=== PATIENT | female | born 1955 | race Caucasian/White ===

== ENCOUNTER 2025-01-16 08:01 | Outpatient (CLI) | payer MEDICARE, SELFPAY ==
--- OUTSIDE RECORDS SUMMARY | 2024-06-05 06:30 | XMS_ITS ---
Author Organization [facility] [employer] Address [address] [place] [address] Care Team Providers Care Flotation Tender Helper Name Role Phone Angel Lerner MD Primary Care Provider Unavail able Angeles Ni Unavailable [phone] Allergies Allergen (clinical drug ingredient) Drug/Non Drug Allergy documented on EMR Reaction Allergy Type Onset Date Status CORTICOSTEROIDS (GLUCOCORTICOIDS) (uncoded) Unknown Allergy 06/09/2023 Active codeine Codeine Unknown Drug Allergy 06/09/2023 Active morphine Morphine Unknown Drug Allergy 06/09/2023 Active REASON FOR VISIT f/u, Depression screening negative Medications Medication SIG (Take, Route, Frequency, Duration) Notes Start Date End Date Status LORazepam 0.5 MG Tablet 1 tablet Oral twice a day; Duration: 30 days As needed 03/09/2024 Active Sertraline HCl 100 MG Tablet TAKE 1 TABLET BY MOUTH TWICE DAILY Oral; Duration: 90 days Active Ibuprofen 800 MG Tablet Oral; Duration: 30 Days Active Diclofenac Sodium 75 MG Tablet Delayed Release TAKE 1 TABLET BY MOUTH TWICE DAILY Oral; Duration: 30 Days Active Melatonin 1 MG Capsule 1 capsule at bedt carlos as needed Orally Once a day Active Dicyclomine HCl 20 MG Tablet TAKE 1 TABLET BY MOUTH TWICE DAILY NEEDED FOR 90 DAYS Oral; Duration: 90 Days Active Azelastine HCl 137 MCG/SPRAY Solution USE 1 SPRAY(S) IN EACH NOSTRIL TWICE DAILY DIRECTED Nasal; Duration: 50 Days Active Famotidine 20 MG Tablet TAKE 1 TABLET BY MOUTH EVERY DAY AT BEDTIME NIGHTLY FOR 90 DAYS Oral; Duration: 90 Days Active Social History Sex Assigned At : Social History Observation Description Sex Assigned At Female Vital Signs Blood pressure systolic 129 mm Hg 06/06/19 25 Blood pressure diastolic 77 mm Hg 025 Height 60.00 in 06/05/2024 Weight 190 lbs 06/05/2024 BMI 37.1 kg/m2 06/05/2024 Height-cm 152.40 cm 06/05/2024 Weight-kg 86.18 kg 06/05/2024 Encounters Encounter Location Date Provider Diagnosis [facility] [address] [place] [address] 06/05/2024 Angeles Ni Encounter for screening for cardiovascular disorders Z13.6 and Encounter for screening for depression Z13.31 Assessments Encounter Date Diagnosis (ICD Code) Assessment Notes Treatment Notes Treatment Clinical Notes Section Notes 06/05/2024 Encounter for screening for cardiovascular disorders (ICD-10 - Z13.6) 06/05/2024 Encounter for screening for depression (ICD-10 - Z13.31) Plan Of Treatment Next Appt Details Provider Name:Dom Baker , 02/08/2025 10:00:00 AM, [address], [facility] [address], [place], [address], History and Physical Notes * HPI (History of Present Illness) Category Sub-Category Detail Notes Category Not es Depression screening PHQ-9 Little inte rest or pleasure in doing things: Several days Feeling down, depressed, or hopeless: Se veral days Trouble falling or staying asleep, or sl eeping too much: Several days Feeling tired or having little energy: N ot at all Poor appetite or overeating: Not at all Feeling bad about yourself o r that you are a failure, or have let yourself or your family down: Not at all Trouble concentrating on thi ngs, such as reading the newspaper or watching television: Not at all Moving or speaking so slowly that other people could have noticed; or the opposite, being so fidgety or restless that you have been moving around a lot more than usual: Not at all Thoughts that you would be b toribio off or of hurting yourself in some way: Not at all Total Score: 3 Interpretation: Minimal Depression Intervention Depression Screening Findings: N egative Suicide Risk Assessment Performed: ____ Depression Screening NIKKI-7 (2018 Edition) Kathrine sparks nervous, anxious, or on edge: Not at all Not being able to stop or control worryi ng: Not at all Worrying too much about different things : Not at all Trouble relaxing: Not at all Being so restless that it is hard to sit still: Not at all Becoming easily annoyed or irritable: No t at all Feeling afraid as if something awful timo ht happen: Not at all Total NIKKI-7 Score: 0 Interpretation of Total: (0 to 4) No Anx iety Progress Notes * TYRONE BLESSING EDOB:[birth year] (69 yo F)Acc No.[id number]:06/05/2024 Patient: BLESSING WEATHERS Provider: Oracio Ni :1955 A ge:69 Y S ex:Female Date:06/05/2024 Address:[address] [place], [place] [id number] Pcp:Angel Lerner MD Subjective: * Chief Complaints: * F /uDepression screening negative * HPI: D epression screening: PHQ-9 L ittle interest or pleasure in doing things?Several days F eeling down, depressed, or hopeless S everal days T rouble falling or staying asleep, or sleeping too much S everal days F eeling tired or having little energy N ot at all P oor appetite or overeating N ot at all F eeling bad about yourself or that you are a failure, or have let yourself or your family down N ot at all T rouble concentrating on things, such as reading the newspaper or watching television N ot at all M oving or speaking so slowly that other people could have noticed; or the opposite, being so fidgety or restless that you have been moving around a lot more than usual N ot at all T houghts that you would be better off or of hurting yourself in some way N ot at all T otal Score 3 I nterpretation M inimal Depression Intervention D epression Screening Findings N egative S uicide Risk Assessment Performed _ D epression Screening: NIKKI-7 (2018 Edition) F eeling nervous, anxious, or on edge N ot at all N ot being able to stop or control worrying?Not at all W orrying too much about different things N ot at all T rouble relaxing N ot at all B eing so restless that it is hard to sit still N ot at all B ecoming easily annoyed or irritable N ot at all F eeling afraid as if something awful might happen N ot at all T otal NIKKI-7 Score 0 I nterpretation of Total ( 0 to 4) No Anxiety * ROS: P erformance Met: N ormal blood pressure reading documented, follow-up not required ( G8783). * Medical History: Problems: Abdominal pain Body mass index 30+ - obesity Carpal tunnel syndrome of left wrist Carpal tunnel syndrome of right wrist Chronic post-traumatic stress disorder Closed fracture of fibula Derangement of right knee Diarrhea Dizziness Fracture of tibial plateau Generalized anxiety disorder Impaired fasting glycemia Middle insomnia Mild recurrent major depression Moderate recurrent major depression Nausea Obesity Osteoarthritis of right knee joint Osteoarthrosis of the carpometacarpal joint of the thumb Pain in right foot Pain in wrist Pure hyperglyceridemia Sprain of talofibular ligament of left ankle , * Medications: T akingDicyclomine HCl 20 MG Tablet TAKE 1 TABLET BY MOUTH TWICE DAILY NEEDED FOR 90 DAYS Oral Famotidine 20 MG Tablet TAKE 1 TABLET BY MOUTH EVERY DAY AT BEDTIME NIGHTLY FOR 90 DAYS Oral Azelastine HCl 137 MCG/SPRAY Solution USE 1 SPRAY(S) IN EACH NOSTRIL TWICE DAILY DIRECTED Nasal Ibuprofen 800 MG Tablet Oral Melatonin 1 MG Capsule 1 capsule at bedtime as needed Orally Once a day Diclofenac Sodium 75 MG Tablet Delayed Release TAKE 1 TABLET BY MOUTH TWICE DAILY Oral Sertraline HCl 100 MG Tablet TAKE 1 TABLET BY MOUTH TWICE DAILY Oral LORazepam 0.5 MG Tablet 1 tablet Oral twice a day As neededMedication List reviewed and reconciled with the patientTaking Dicyclomine HCl 20 MG Tablet TAKE 1 TABLET BY MOUTH TWICE DAILY NEEDED FOR 90 DAYS Oral Taking Famotidine 20 MG Tablet TAKE 1 TABLET BY MOUTH EVERY DAY AT BEDTIME NIGHTLY FOR 90 DAYS Oral Taking Azelastine HCl 137 MCG/SPRAY Solution USE 1 SPRAY(S) IN EACH NOSTRIL TWICE DAILY DIRECTED Nasal Taking Ibuprofen 800 MG Tablet Oral Taking Melatonin 1 MG Capsule 1 capsule at bedtime as needed Orally Once a day Taking Diclofenac Sodium 75 MG Tablet Delayed Release TAKE 1 TABLET BY MOUTH TWICE DAILY Oral Taking Sertraline HCl 100 MG Tablet TAKE 1 TABLET BY MOUTH TWICE DAILY Oral Taking LORazepam 0.5 MG Tablet 1 tablet Oral twice a day As neededMedication List reviewed and reconciled with the patient * Allergies: C ORTICOSTEROIDS (GLUCOCORTICOIDS): Allergy - Onset Date 06/09/2023odeine: Allergy - Onset Date 06/09/2023Morphine: Allergy - Onset Date 06/09/2023yesAllergies Verified. Objective: * Vitals: B P:129/77mm Hg, Wt:190lbs, Wt-k.18 kg, Ht: 60.00 in, Ht-cm: 152.40 cm, BMI:37.1Index, Body Surface Area: 1.91. Assessment: * Assessment: 1. E ncounter for screening for cardiovascular disorders - Z13.6 2 . E ncounter for screening for depression - Z13.31 Plan: * Procedure Codes: G 8783 NORMAL BP READING DOC F/U NOT [id number] BEHAV ASSMT W/SCORE & DOCD/STAND [id number] MOST RECENT SYSTOLIC BP < 140MM [id number] MOST RECENT DIASTOLIC BP < 90MM HG Billing Information: * Procedure Codes: G8783 NORMAL BP READING DOC F/U NOT RQR. [id number] BEHAV ASSMT W/SCORE & DOCD/STAND INSTRUMENT. G8752 MOST RECENT SYSTOLIC BP < 140MM HG. G8754 MOST RECENT DIASTOLIC BP < 90MM HG. * Electronic signature of David Ni on 01/16/2025 at 08:11 AM CDT Sign off status: Pending * Provider: Oracio Ni Date: 0 06/05/2024 Generated for Marija madrid/Lima/Regina on: 1 08:11 AM CDT
--- NOTE | ~2025-01-16 | CT_ITS ---
EXAMINATION: CT lung screening DATE: 01/16/2025 08:27 INDICATION: Personal history of nicotine dependence TECHNIQUE: Computed tomography (CT) of the chest was performed without intravenous contrast. The dose-length product was 127.75 mGy-cm. Automated exposure control and iterative reconstruction technique were employed. COMPARISON: None FINDINGS: Heart size normal. No significant pleural or pericardial effusion. There are borderline mediastinal lymph nodes, likely reactive. There is atherosclerosis of the aorta and coronary arteries. Fatty infiltration of the liver. There is a 12 mm low-density mass of the left adrenal gland, likely b enign adenoma. No endobronchial lesions. There is dependent atelectasis. There is a 3 mm perifissural nodule on the right, likely benign. There are mild peripheral interstitial changes with interlobular septal thickening and groundglass opacities which may reflect interstitial lung disease/early fibros is, chronic hypersensitivity pneumonitis or less likely infection or pulmonary edema. There is a 1-2 mm left upper lobe nodule. IMPRESSION: 1. Lung-RADS category 2: Benign appearance or behavior. Continue annual screening with noncontrast low-dose chest CT in 12 months. Reviewed, dictated and finalized at location O. IMPRESSION: 1. Lung-RADS category 2: Benign appearance or behavior. Continue annual screeni ng with noncontrast low-dose chest CT in 12 months.
--- NOTE | ~2025-01-16 | CT_ITS ---
EXAMINATION: CT IAC/mastoids BI wo con DATE: 01/16/2025 08:27 INDICATION: Dizziness and giddiness. TECHNIQUE: Computed tomography (CT) of the temporal bones was performed without intravenous contrast. Automated exposure control and iterative reconstruction technique were employed. The dose-length product was 211.76 mGy-cm. COMPARISON: None FINDINGS: RIGHT TEMPORAL BONE: The internal auditory canal, cochlea, vestibule, semicircular canals, vestibular aqueduct, carotid canal, jugular bulb, ossicles, Prussak space, scutum, tympanic membrane, and external auditory canal are normal. There is a trace right mastoid effusion. LEFT TEMPORAL BONE: The internal auditory canal, cochlea, vestibule, semicircular canals, vestibular aqueduct, carotid canal, jugular bulb, facial nerve course, ossicles, Prussak space, scutum, tympanic membrane, external auditory canal, and mastoid air cells are normal. IMPRESSION: 1. Trace right mastoid effusion. Reviewed, dictated and finalized at location E.
--- OUTSIDE RECORDS SUMMARY | 2025-01-16 08:10 | XMS_ITS | Encounter Summary ---
Author Organization [employer] Address 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
--- OUTSIDE RECORDS SUMMARY | 2025-01-16 08:10 | XMS_ITS | Encounter Summary ---
Author Organization [employer] Address 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
--- OUTSIDE RECORDS SUMMARY | 2025-01-16 08:10 | XMS_ITS | Clinical Summary ---
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 Gender Identity Not on file Sexual Orientation Not on file Plan of Treatment Health Maintenance Due Date Last Done Comments DTAP/TDAP/TD VACCINES (1 - Tdap) 1976 BREAST CANCER SCREENING 1997 COLORECTAL SCREENING 2002 Colorectal Cancer Screening 2002 FIT-DNA Q 3 years 2002 FIT/FOBT Q 1 year 2002 Flex Sig/CT Colonography Q 5 years 2002 PNEUMOCOCCAL VACCINE 50+ YEARS (1 of 1 - PCV) 04/03/19 08 ZOSTER VACCINE (1 of 2) 2007 OSTEOPOROSIS SCREENING 2022 INFLUENZA VACCINE (#1) 2024 RSV VACCINE (60+ or ) (1 - 1-dose 75+ series) 2032 Care Teams Cotton Picker Operator Relationship Specialty Start Date End Date Otf Valdez MD PCP - General 11/19/08
--- OUTSIDE RECORDS SUMMARY | 2025-01-16 08:10 | XMS_ITS | Clinical Summary ---
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 Name Role Phone Angel Lerner MD Primary Care Provid er Allergies Active Allergy Reactions Criticality Noted Date Comments Codeine Nausea And Vomiting,Vomiting Low 010 Morphine Nausea And Vomiting,Vomiting Low 010 Medications meclizine (ANTIVERT) 25 mg tablet Take 1 tablet (25 mg total) by mouth 3 (three) times a day as needed 7 Active loperamide (IMODIUM) 2 mg capsule Take 1 capsule (2 mg total) by mouth as needed 9 Active dicyclomine (BENTYL) 20 mg tablet Take 1 tablet (20 mg total) by mouth daily 9 Active loratadine-pseud oephedrine (Claritin-D 24 Hour) 10-240 mg per 24 hr tablet Take 1 tablet by mouth daily Active wheat dextrin (BENEFIBER CLEAR SF, DEXTRIN, ORAL) Take by mouth Active calcium carbonate (TUMS ORAL) Take by mouth Active sertraline (ZOLOFT) 100 mg tablet Take 1 tablet (100 mg total) by mouth 2 (two) times a day 1 Active Lacto.acidophilu s-Bif.animalis 32 billion cell capsule Take by mouth Active fluticasone propionate (FLONASE) 50 mcg/actuation nasal spray Administer 1 spray into each nostril as needed for rhinitis Active ascorbic acid (vitamin C) 100 mg tablet Take 1 tablet (100 mg total) by mouth daily Active zinc 50 mg tablet Take by mouth Active ergocalciferol, vitamin D2, (VITAMIN D2 ORAL) Take by mouth Active vitamin B complex capsule Take 1 capsule by mouth daily Active omega-3/dha/epa/ dpa/fish oil (OMEGA-3 2100 ORAL) Take by mouth Active LORazepam (ATIVAN) 0.5 mg tablet Take 1 tablet (0.5 mg total) by mouth nightly as needed 3 Active magnesium gluconate 200 mg tabletIndication s:hypomagnesemia 1 tablet (200 mg total) Pt not sure of the mg Active ondansetron (Zofran) 4 mg tabletIndication s:Nausea Take 1 tablet (4 mg total) by mouth every 8 (eight) hours as needed for nausea or vomiting 20 tablet 3 Active famotidine (PEPCID) 20 mg tablet TAKE 1 TABLET BY MOUTH EVERY DAY AT BEDTIME NIGHTLY FOR 90 DAYS 4 Active azelastine (ASTELIN) 137 mcg (0.1 %) nasal sprayIndications :Seasonal allergic rhinitis due to pollen Administer 1 spray into each nostril 2 (two) times a day Use in each nostril as directed 30 mL 5 4 Active ibuprofen (ADVIL,MOTRIN) 800 mg tabletIndication s:Primary generalized (osteo)arthritis Take 1 tablet (800 mg total) by mouth 3 (three) times a day 90 tablet 5 4 Active semaglutide (Wegovy) 0.25 mg/0.5 mL auto-injectorInd ications:Class 2 severe obesity due to excess calories with serious comorbidity and body mass index (BMI) of 36.0 to 36.9 in adult Inject 0.5 mL (0.25 mg total) under the skin every 7 days 2 mL 5 4 Active Active Problems Problem Noted Date Diagnosed Date Left carpal tunnel syndrome 12/22/2019 Abdominal pain of multiple sites 12/14/2019 Mucoid diarrhea 12/14/2019 Fracture of tibial plateau 02/14/2018 Closed fracture of part of fibula 02/03/2018 Internal derangement of right knee 02/03/2018 Sprain of anterior talofibular ligament of left ankle 02/03/2018 Primary osteoarthritis of right knee 10/13/2017 BMI 35.0-35.9,adult 02/01/2017 Primary osteoarthritis of fi rst carpometacarpal joint of right hand 07/29/2016 Wrist pain 07/29/2016 Carpal tunnel syndrome of right wrist 07/23/2016 Foot pain, right 02/10/2016 Impaired fasting glucose 02/10/2016 Pure hyperglyceridemia 02/10/2016 Dizziness 06/18/2009 Nausea 06/18/2009 Immunizations Immunization Administration Dates Next Due Influenza, Quadrivalent, Larissa l Culture-based MDCK, Preservative Free, Antibiotic Free, Intramuscular 12/14/2021 Influenza, Quadrivalent, Spl it, Preservative Free, Intramuscular 12/15/2020,12/13/2019,01/17/2019,12/31,01/20/2016 Influenza, Trivalent, IM (MDV) 12/05/2016,2013,01/25/2013 Influenza, Trivalent, Preser vative Free, Intramuscular 01/13/2015 Influenza, Unspecified 03/05/2023(Deferr ed: Patient Refused),12/15/2020,12/13/2019, [facility] (J&[facility]) SARS-CoV-2 Vaccination 05/31/2020 Pfizer SARS-CoV-2 Monovalent Vaccination (12+ Yrs) PURPLE 01/30/2021 Pneumococcal Conjugate PCV 13 12/15/2020 Pneumococcal Conjugate Pcv20 11/02/2022 Pneumococcal Polysaccharide PPV23 01/25/2013 Tdap 09/13/2020 ZOSTER Recombinant 05/09/2021,09/13/2020 Surgical History Surgery Date Site/Laterality Comments CARPAL TUNNEL RELEASE HYSTERECTOMY KNEE SURGERY Right CYST REMOVAL CATARACT EXTRACTION, BILATERAL Medical History Medical History Date Comments Depression Anxiety Allergic Irritable bowel syndrome Vertigo Arthritis Basal cell carcinoma removed wit h liquid nitrogen Family History Medical History Relation Name Comments Cancer Father esophageal Diabetes Father Cancer Mother Tumor on spinal cord Breast cancer Paternal Grandmother neurofibromyalgia Sister Relation Name Status Comments Father Mother Paternal Grandmother Sister Social History Tobacco Use Types Packs/Day Years Used Date Smoking Tobacco: Every Day Vaping Smokeless Tobacco: Never Tobacco Cessation:Ready to Q uit: Not Asked; Counseling Given: Not Answered Alcohol Use Standard Drinks/Week Comments Not Currently 0 (1 standard drink = 0.6 oz pur e alcohol) AUDIT-C Answer Date Recorded Q1: How often do you have a drink containing alc ohol? Monthly or less 10/12/2023 Q2: How many drinks containi ng alcohol do you have on a typical day when you are drinking? 1 or 2 10/12/2023 Q3: How often do you have si x or more drinks on one occasion? 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 Gender Identity Female 12/21/2019 10:02 AM CDT Sexual Orientation Straight 12/21/2019 10 :02 AM CDT Obstetrics History Para Term AB IAB SAB Ectopic Multiple Livin g Live Births 4 Date Outcome GA Total Labor Labor/2nd/3rd Weight Sex Type Anes PTL Henrietta A1 A5 Name Clin Last Filed Vital Signs Vital Sign Reading Time Taken Comments Blood Pressure 118/68 11/22/2023 8:38 AM CDT Pulse 82 11/22/2023 8:38 AM CDT Temperature 36.5 C (97.7 F) 11/22/2023 8:38 AM CDT Respiratory Rate 18 11/22/2023 8:38 AM CDT Oxygen Saturation 96% 11/22/2023 8:38 AM CDT Inhaled Oxygen Concentration - - Weight 84.2 kg (185 lb 9.6 oz) 11/22/2023 8:38 A M CDT Height 152.4 cm (5') 11/22/2023 8:38 AM CDT Body Mass Index 36.25 11/22/2023 8:38 AM CDT Plan of Treatment Health Maintenance Due Date Last Done Comments Hepatitis B Screening 1973 Breast Cancer Screening-Mammogram 12/30/2023 12/29/2022, 12/08/2021, 09/19/2020 Depression Screening 10/11/2024 10/12/2023, 10/12/2023, 11/02/2022, Additional history exists Fall Risk Assessment 10/11/2024 10/12/2023, 09/23/19 23 Well Visit 65+ 10/11/2024 10/12/2023, 09/26, 09/22/2022, Additional history exists Covid-19 Vaccine (4 - 2024-2 6 season) 2024 01/04/2022, 01/30/2021, 05/31/2020 Influenza Vaccine (#1) 2024 , 12/15/2020, 12/15/2020, Additional history exists Osteoporosis Screening-Bone Density Scan 12/29/2024 12/29/2022 DTaP/Tdap/Td Vaccine (2 - Td or Tdap) 09/13/2030 09/13/2020 Colon Cancer Screening-Colonoscopy 08/07/2034 08/07/2024, 08/03/2024, 05/29/2016 Zoster Vaccine Completed 05/09/2021, 09/13/2020 Pneumococcal vaccine 65+ Completed 023, 12/15/2020, 01/25/2013 Hepatitis C Screening Completed 12/01/2022 Colon Cancer Screening-CT Colonography Discontinued 08/07/2024, 08/03/2024, 05/29/2016 Colon Cancer Screening-DNA Stool Discontinued 08/07/2024, 08/03/2024, 05/29/2016 Colon Cancer Screening-FIT Discontinued 08/07, 08/03/2024, 05/29/2016 Colon Cancer Screening-Sigmoidoscopy Discontinued 08/07/2024, 08/03/2024, 05/29/2016 Procedures Procedure Name Priority Date/Time Associated Diagnosis Comments COLONOSCOPY Routine 08/07/2024 9:26 AM CDT DEXA AXIAL SKELETON BONE DENSITY 1 OR MORE SITES Schedule Routine, Read Routine (OP Routine) 12/29/2022 10:14 AM CDT Menopause present Screening for osteoporosis SCREENING MAMMOGRAM BILATERAL W REJI Schedule Routine, Read Routine (OP Routine) 12/29/2022 10:13 AM CDT Screening mammogram for breast cancer HEPATITIS C ANTIBODY Routine 12/01/2022 11:59 AM CDT from Last 3 Months or Most Recently Relevant to Health Maintenance Results * Colonoscopy (08/07/2024 9:26 AM CDT) Anatomical Region Laterality Modality Other us Historical Provider ENDOSCOPY PROCEDURES [place] l Result * Dexa Axial Skeleton Bone Density 1 or 2 Site (12/29/2022 10:14 AM CDT) Anatomical Region Laterality Modality Body N/A Mammography 12/29/2022 2:43 PM CDT Narrative 12/29/2022 2:45 PM CDT EXAM DESCRIPTION: DEXA AXIAL SKELETON BONE DENSITY 1 OR MORE SITES REASON FOR STUDY: 67 y/o year old F with given history of: Postmenopausal status. Patient takes vitamin-History of inflammatory bowel disease. 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: O-CODES A (S/N [id number]) CLINICAL INFORMATION: Current height: 60 inches Maximum height: 60 inches Weight: 186 pounds Risk factors: None COMPARISON: None available FINDINGS: AP LUMBAR SPINE L1-L4: Total BMD is 0.935 g/cm2 T-score is -1.0 LEFT HIP: Total BMD is 0.884 g/cm2 T-score is -0.5 Femoral neck BMD is 0.672 g/cm2 T-score is -1.6 FRAX: 10 year risk for a major osteoporotic fracture is 8.3 %, 10 year risk for a hip fracture is 0.9 % IMPRESSION: Low bone mass REFERENCE: Bone mineral density: Normal (T-score above or = -1.0) Low bone mass (T-score between -1.0 and -2.5) replaces the previously used term osteopenia Osteoporosis (T-score = or below -2.5) Medical evaluation for secondary causes of low bone mineral density may be appropriate. FRAX is a World Health Organization validated fracture risk assessment tool that calculates a person's 10 year probability of a major osteoporosis related fracture and hip fracture. According to the National Osteoporosis Foundation guidelines, postmenopausal women and men age 50 or older with low bone mass and a 10 year probability of a major osteoporosis related fracture = or greater than 20% or a 10 year probability of a hip fracture = or greater than 3% should be considered for treatment. For further information, including treatment recommendations, please refer to the 2019 ISCD Official Positions (http://www.iscd.org) and the NOF's Clinician's Guide to Prevention and Treatment of Osteoporosis (http://www.nof.org/professionals/clinical-guidelines) THIS IS AN ELECTRONICALLY VERIFIED FINAL REPORT 12/29/2022 2:45 PM - Electronically signed by Sheree Cam M.D. TW: TW Report ID: [id number] Reading Location: [place] [id number] Procedure Note Sheree Cam MD - 12/29/2022 EXAM DESCRIPTION: DEXA AXIAL SKELETON BONE DENSITY 1 OR MORE SITES REASON FOR STUDY: 67 y/o year old F with given history of:Postmenopausal status. Patient takes vitamin-History of inflammatory bowel disease. 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: O-CODES A (S/N [id number]) CLINICAL INFORMATION: Current height: 60 inches Maximum height: 60 inches Weight: 186 pounds Risk factors: None COMPARISON: None available FINDINGS: AP LUMBAR SPINE L1-L4: Total BMD is 0.935 g/cm2 T-score is -1.0 LEFT HIP: Total BMD is 0.884 g/cm2 T-score is -0.5 Femoral neck BMD is 0.672 g/cm2 T-score is -1.6 FRAX: 10 year risk for a major osteoporotic fracture is 8.3 %, 10 year risk fora hip fracture is 0.9 % IMPRESSION: Low bone mass REFERENCE: Bone mineral density: Normal (T-score above or = -1.0) Low bone mass (T-score between -1.0 and -2.5) replaces thepreviously used term osteopenia Osteoporosis (T-score = or below -2.5) Medical evaluation for secondary causes of low bone mineral density may be appropriate. FRAX is a World Health Organization validated fracture risk assessmenttool that calculates a person's 10 year probability of a major osteoporosisrelated fracture and hip fracture. According to the National OsteoporosisFoundation guidelines, postmenopausal women and men age 50 or older with low bonemass and a 10 year probability of a major osteoporosis related fracture = or greater than 20% or a 10 year probability of a hip fracture = or greaterthan 3% should be considered for treatment. For further information, including treatment recommendations, please referto the 2019 ISCD Official Positions (http://www.iscd.org) and the NOF's Clinician's Guide to Prevention and Treatment of Osteoporosis (http://www.nof.org/professionals/clinical-guidelines) THIS IS AN ELECTRONICALLY VERIFIED FINAL REPORT 12/29/2022 2:45 PM - Electronically signed by Sheree Cam M.D. TW: ERICKA Report ID: [id number] Reading Location: [id number] Angel Lerner MD IMTereso DXA PROCEDURES F inal Result * Screening Mammogram Bilateral W Reji (12/29/2022 10:13 AM CDT) Anatomical Region Laterality Modality Breast Bilateral Mammography Impressions 12/29/2022 10:21 AM CDT BI-RADS ATLAS category (overall): 1 - Negative There is no mammographic evidence of malignancy. A 1 year screening mammogram is recommended. The patient has been or will be contacted. We recommend annual screening mammography for women at average risk of breast cancer beginning at age 40, based on guidelines of the [employer] (ACR Practice Parameter for the Performance of Screening and Diagnostic Mammography) and [employer]. For women with and elevated risk of breast cancer, please refer to the ACR Practice Parameter for specific screening recommendations. The patient will be entered into a reminder system with a target due date of 1 year for her next screening exam. Narrative 12/29/2022 10:21 AM CDT Screening Mammogram Bilateral W Reji: 12/29/22 The study was acquired using full field digital technology and interpreted from soft copy. 2D digital mammographic views, as well as 3D digital tomosynthesis were performed in the CC and MLO projections. CLINICAL: Screening mammogram for breast cancer. No relevant medical history has been documented for this patient. History of breast cancer in Paternal Grandmother. COMPARISONS: 12/08/2021 SCREENING MAMMOGRAM BILATERAL W REJI 09/19/2020 Screening Mammogram Bilateral W Reji 03/06/2011 Screening Mammogram 2D Bilateral BREAST TISSUE: The breasts have scattered areas of fibroglandular density. FINDINGS: No suspicious masses, suspicious calcifications, or other suspicious findings are seen within either breast. There has been no suspicious change. Angel Lerner MD IMG MAMMO PROCEDURES Final Result * Hepatitis C antibody (12/01/2022 11:59 AM CDT) Hep C Ab NON-REACTI VE NON-REACT MAKAYLA [facility] Comment: HCV antibody was non-reactive. There is no laboratory evidence of HCV infection. In most cases, no further action is required. However, if recent HCV exposure is suspected, a test for HCV RNA (test code 58710) is suggested. For additional information please refer to http://education.Spectrawatt/faq/KKA02o1 (This link is being provided for informational/ educational purposes only.) 12/01/2022 11:5 9 AM CDT 12/01/2022 12:00 PM CDT Angel Lerner MD LAB MICROBIOLOGY - G ENERAL ORDERABLES Final Result [facility] [address] [place] [phone] from Last 3 Months or Most Recently Relevant to Health Maintenance Insurance [facility] [employer] MEDICARE HMO Care Teams Lay Out Worker Relationship Specialty Start Date End Date Angel Lerner MD [address] [place] [address] PCP - General 12/31/18
--- OUTSIDE RECORDS SUMMARY | 2025-01-16 08:11 | XMS_ITS | Patient Health Record ---
Author Organization [facility] Address [address] [place] [address] Care Team Providers Care Skein Yarn Dyer Name Role Phone Angel Lerner MD Primary Care Provider Unavail able Иванsatnam Angeles Unavailable [phone] SamuelJorge salazarjay Unavailable [phone] Allergies Allergen (clinical drug ingredient) Drug/Non Drug Allergy documented on EMR Reaction Allergy Type Onset Date Status CORTICOSTEROIDS (GLUCOCORTICOIDS) (uncoded) Unknown Allergy 06/09/2023 Active codeine Codeine Unknown Drug Allergy 06/09/2023 Active morphine Morphine Unknown Drug Allergy 06/09/2023 Active Results Component Value Reference Range Notes UDT Reviewed date:06/26/2024 10:30:31 AM Interpretation: Performing Lab: Notes/Report: Amphetamine (AMP) N 0 - 1000 ng/ml Buprenorphine (BUP) N 0 - 10 ng/ml Oxazepam (BZO) N 0 - 300 ng/ml Cocaine (YUMIKO) N 0 - 300 ng/ml Methamphetamine (mAMP) N 0 - 300 ng/ml Methylenedioxymethamphetamine (MDMA) N 0 - 500 ng/ml Morphine (MOP) N 0 - 25 ng/ml Methadone (MTD) N 0 - 300 ng/ml Oxycodone (OXY) N 0 - 300 ng/ml THC N 0 - 50 ng/ml x N 0 - 1000 ng/ml x N 0 - 1000 ng/ml x N 0 - 300 ng/ml x N 0 - 300 ng/ml x N 0 - 300 ng/ml Reason For Referral No Information Medications Medication SIG (Take, Route, Frequency, Duration) Notes Start Date End Date Status Sertraline HCl 100 MG Tablet 1 tablet Oral twice a day; Duration: 90 days Active Ibuprofen 800 MG Tablet Oral; Duration: 30 Days Active Melatonin 1 MG Capsule 1 capsule at bedt carlos as needed Orally Once a day Active Famotidine 20 MG Tablet TAKE 1 TABLET BY MOUTH EVERY DAY AT BEDTIME NIGHTLY FOR 90 DAYS Oral; Duration: 90 Days Active Azelastine HCl 137 MCG/SPRAY Solution USE 1 SPRAY(S) IN EACH NOSTRIL TWICE DAILY DIRECTED Nasal; Duration: 50 Days Active Dicyclomine HCl 20 MG Tablet TAKE 1 TABLET BY MOUTH TWICE DAILY NEEDED FOR 90 DAYS Oral; Duration: 90 Days Active LORazepam 0.5 MG Tablet 1 tablet Oral Once a day; Duration: 30 days As needed 09/21/2024 Active Immunizations Vaccine Route Administration Date Status Comme nts Influenza virus vaccine, quadrivalent (IIV4), split virus, 0.25 mL dosage Unknown 01/13/2015 Administered Influenza, seasonal, injecta ble, preservative free, 3 yrs and above Unknown 01/25/2013 Administered Influenza, seasonal, injecta ble, preservative free, 3 yrs and above Unknown 01/07/2014 Administered Influenza, seasonal, injecta ble, preservative free, 3 yrs and above Unknown 12/05/2016 Administered Influenza, unspecified formulation Unknown 12/06/2016 A dministered Influenza, unspecified formulation Unknown 12/13/2019 A dministered Influenza, unspecified formulation Unknown 12/15/2020 A dministered Raffaele Covid-19 Vaccine Unknown 05/31/2020 Administere d Novel [id number], preservative free Unknown 01/20/2016 Administered Novel [id number]-[id number], preservative free Unknown 12/31/2017 Administered Novel [id number]-[id number], preservative free Unknown 01/17/2019 Administered Novel [id number]-[id number], preservative free Unknown 12/13/2019 Administered [employer] Covid-19 Vac cine 2nd dose Unknown 01/30/2021 Administered Pneumococcal conjugate PCV 13 Unknown 12/15/2020 Admini stered Pneumococcal polysaccharide PPV23 Unknown 01/25/2013 Ad ministered Tdap Unknown 09/13/2020 Administered Zoster Unknown 09/13/2020 Administered Zoster Unknown 05/09/2021 Administered Social History Tobacco Use: Social History Observation Description Date Details (start date - stop date) Never Smoker NA - NA Sex Assigned At : Social History Observation Description Sex Assigned At Female Social History Tobacco Use: Social Info Question Answer Notes Tobacco Control (Standard) Tobacco use: Nonsmoker Additional Details Category Social Info Options Details Migrated Social History Migrated Social History Alcohol Intake: None 04/09/2022,Tobacco Years: Former smoker 04/09/2022 Section Notes: Social History Substance Use Do you or have you ever smoked tobacco?: Former smoker How much tobacco do you smoke?: None When did you quit smoking?: 11-15 years since last cigarette Do you or have you ever used any other forms of tobacco or nicotine?: No Do you or have you ever used e-cigarettes or vape?: Current user of electronic cigarettes What was the date of your most recent tobacco screening?: 06/09/2023 Has tobacco cessation counseling been provided?: No What is your level of alcohol consumption?: None How many years have you consumed alcohol?: 50 Do you use any illicit or recreational drugs?: Yes Which illicit or recreational drugs have you used?: Edibles Have you used IV drugs?: No What is your level of caffeine consumption?: Moderate Education and Occupation What is the highest grade or level of school you have completed or the highest degree you have received?: Some college, no degree Are you currently employed?: Yes Who is your employer?: [employer] Marriage and Sexuality What is your relationship status?: Are you sexually active?: No Do you use protection during sex?: No How many children do you have?: 2 Home and Environment Are there any guns present in your home?: Yes Advance Directive Do you have an advance directive?: No Do you have a medical power of finance attorney?: No Gender Identity and LGBTQ Identity Gender identity: Identifies as Female Assigned sex at : Female Sexual orientation: Straight or heterosexual Social History Substance Use Do you or have you ever smoked tobacco?: Former smoker How much tobacco do you smoke?: None When did you quit smoking?: 11-15 years since last cigarette Do you or have you ever used any other forms of tobacco or nicotine?: No Do you or have you ever used e-cigarettes or vape?: Current user of electronic cigarettes What was the date of your most recent tobacco screening?: 06/09/2023 Has tobacco cessation counseling been provided?: No What is your level of alcohol consumption?: None How many years have you consumed alcohol?: 50 Do you use any illicit or recreational drugs?: Yes Which illicit or recreational drugs have you used?: Edibles Have you used IV drugs?: No What is your level of caffeine consumption?: Moderate Education and Occupation What is the highest grade or level of school you have completed or the highest degree you have received?: Some college, no degree Are you currently employed?: Yes Who is your employer?: [employer] Marriage and Sexuality What is your relationship status?: Are you sexually active?: No Do you use protection during sex?: No How many children do you have?: 2 Home and Environment Are there any guns present in your home?: Yes Advance Directive Do you have an advance directive?: No Do you have a medical power of finance attorney?: No Public Health and Travel Have you been to an area known to be high risk for COVID-19?: No Gender Identity and LGBTQ Identity Gender identity: Identifies as Female Assigned sex at : Female Sexual orientation: Straight or heterosexual Social History Substance Use Do you or have you ever smoked tobacco?: Former smoker How much tobacco do you smoke?: None When did you quit smoking?: 11-15 years since last cigarette Do you or have you ever used any other forms of tobacco or nicotine?: No Do you or have you ever used e-cigarettes or vape?: Current user of electronic cigarettes What was the date of your most recent tobacco screening?: 06/09/2023 Has tobacco cessation counseling been provided?: No What is your level of alcohol consumption?: None How many years have you consumed alcohol?: 50 Do you use any illicit or recreational drugs?: Yes Which illicit or recreational drugs have you used?: Edibles Have you used IV drugs?: No What is your level of caffeine consumption?: Moderate Education and Occupation What is the highest grade or level of school you have completed or the highest degree you have received?: Some college, no degree Are you currently employed?: Yes Who is your employer?: [employer] Marriage and Sexuality What is your relationship status?: Are you sexually active?: No Do you use protection during sex?: No How many children do you have?: 2 Home and Environment Are there any guns present in your home?: Yes Advance Directive Do you have an advance directive?: No Do you have a medical power of finance attorney?: No Gender Identity and LGBTQ Identity Gender identity: Identifies as Female Assigned sex at : Female Sexual orientation: Straight or heterosexual Social History Substance Use Do you or have you ever smoked tobacco?: Former smoker How much tobacco do you smoke?: None When did you quit smoking?: 11-15 years since last cigarette Do you or have you ever used any other forms of tobacco or nicotine?: No Do you or have you ever used e-cigarettes or vape?: Current user of electronic cigarettes What was the date of your most recent tobacco screening?: 06/09/2023 Has tobacco cessation counseling been provided?: No What is your level of alcohol consumption?: None How many years have you consumed alcohol?: 50 Do you use any illicit or recreational drugs?: Yes Which illicit or recreational drugs have you used?: Edibles Have you used IV drugs?: No What is your level of caffeine consumption?: Moderate Education and Occupation What is the highest grade or level of school you have completed or the highest degree you have received?: Some college, no degree Are you currently employed?: Yes Who is your employer?: [employer] Marriage and Sexuality What is your relationship status?: Are you sexually active?: No Do you use protection during sex?: No How many children do you have?: 2 Home and Environment Are there any guns present in your home?: Yes Advance Directive Do you have an advance directive?: No Do you have a medical power of finance attorney?: No Public Health and Travel Have you been to an area known to be high risk for COVID-19?: No Gender Identity and LGBTQ Identity Gender identity: Identifies as Female Assigned sex at : Female Sexual orientation: Straight or heterosexual Social History Substance Use Do you or have you ever smoked tobacco?: Former smoker How much tobacco do you smoke?: None When did you quit smoking?: 11-15 years since last cigarette Do you or have you ever used any other forms of tobacco or nicotine?: No Do you or have you ever used e-cigarettes or vape?: Current user of electronic cigarettes What was the date of your most recent tobacco screening?: 06/09/2023 Has tobacco cessation counseling been provided?: No What is your level of alcohol consumption?: None How many years have you consumed alcohol?: 50 Do you use any illicit or recreational drugs?: Yes Which illicit or recreational drugs have you used?: Edibles Have you used IV drugs?: No What is your level of caffeine consumption?: Moderate Education and Occupation What is the highest grade or level of school you have completed or the highest degree you have received?: Some college, no degree Are you currently employed?: Yes Who is your employer?: [employer] Marriage and Sexuality What is your relationship status?: Are you sexually active?: No Do you use protection during sex?: No How many children do you have?: 2 Home and Environment Are there any guns present in your home?: Yes Advance Directive Do you have an advance directive?: No Do you have a medical power of finance attorney?: No Public Health and Travel Have you been to an area known to be high risk for COVID-19?: No Gender Identity and LGBTQ Identity Gender identity: Identifies as Female Assigned sex at : Female Sexual orientation: Straight or heterosexual Social History Substance Use Do you or have you ever smoked tobacco?: Former smoker How much tobacco do you smoke?: None When did you quit smoking?: 11-15 years since last cigarette Do you or have you ever used any other forms of tobacco or nicotine?: No Do you or have you ever used e-cigarettes or vape?: Current user of electronic cigarettes What was the date of your most recent tobacco screening?: 06/09/2023 Has tobacco cessation counseling been provided?: No What is your level of alcohol consumption?: None How many years have you consumed alcohol?: 50 Do you use any illicit or recreational drugs?: Yes Which illicit or recreational drugs have you used?: Edibles Have you used IV drugs?: No What is your level of caffeine consumption?: Moderate Education and Occupation What is the highest grade or level of school you have completed or the highest degree you have received?: Some college, no degree Are you currently employed?: Yes Who is your employer?: [employer] Marriage and Sexuality What is your relationship status?: Are you sexually active?: No Do you use protection during sex?: No How many children do you have?: 2 Home and Environment Are there any guns present in your home?: Yes Advance Directive Do you have an advance directive?: No Do you have a medical power of finance attorney?: No Public Health and Travel Have you been to an area known to be high risk for COVID-19?: No Gender Identity and LGBTQ Identity Gender identity: Identifies as Female Assigned sex at : Female Sexual orientation: Straight or heterosexual Social History Substance Use Do you or have you ever smoked tobacco?: Former smoker How much tobacco do you smoke?: None When did you quit smoking?: 11-15 years since last cigarette Do you or have you ever used any other forms of tobacco or nicotine?: No Do you or have you ever used e-cigarettes or vape?: Current user of electronic cigarettes What was the date of your most recent tobacco screening?: 06/09/2023 Has tobacco cessation counseling been provided?: No What is your level of alcohol consumption?: None How many years have you consumed alcohol?: 50 Do you use any illicit or recreational drugs?: Yes Which illicit or recreational drugs have you used?: Edibles Have you used IV drugs?: No What is your level of caffeine consumption?: Moderate Education and Occupation What is the highest grade or level of school you have completed or the highest degree you have received?: Some college, no degree Are you currently employed?: Yes Who is your employer?: [employer] Marriage and Sexuality What is your relationship status?: Are you sexually active?: No Do you use protection during sex?: No How many children do you have?: 2 Home and Environment Are there any guns present in your home?: Yes Advance Directive Do you have an advance directive?: No Do you have a medical power of finance attorney?: No Gender Identity and LGBTQ Identity Gender identity: Identifies as Female Assigned sex at : Female Sexual orientation: Straight or heterosexual Social History Substance Use Do you or have you ever smoked tobacco?: Former smoker How much tobacco do you smoke?: None When did you quit smoking?: 11-15 years since last cigarette Do you or have you ever used any other forms of tobacco or nicotine?: No Do you or have you ever used e-cigarettes or vape?: Current user of electronic cigarettes What was the date of your most recent tobacco screening?: 06/09/2023 Has tobacco cessation counseling been provided?: No What is your level of alcohol consumption?: None How many years have you consumed alcohol?: 50 Do you use any illicit or recreational drugs?: Yes Which illicit or recreational drugs have you used?: Edibles Have you used IV drugs?: No What is your level of caffeine consumption?: Moderate Education and Occupation What is the highest grade or level of school you have completed or the highest degree you have received?: Some college, no degree Are you currently employed?: Yes Who is your employer?: [employer] Marriage and Sexuality What is your relationship status?: Are you sexually active?: No Do you use protection during sex?: No How many children do you have?: 2 Home and Environment Are there any guns present in your home?: Yes Advance Directive Do you have an advance directive?: No Do you have a medical power of finance attorney?: No Gender Identity and LGBTQ Identity Gender identity: Identifies as Female Assigned sex at : Female Sexual orientation: Straight or heterosexual Social History Substance Use Do you or have you ever smoked tobacco?: Former smoker How much tobacco do you smoke?: None When did you quit smoking?: 11-15 years since last cigarette Do you or have you ever used any other forms of tobacco or nicotine?: No Do you or have you ever used e-cigarettes or vape?: Current user of electronic cigarettes What was the date of your most recent tobacco screening?: 06/09/2023 Has tobacco cessation counseling been provided?: No What is your level of alcohol consumption?: None How many years have you consumed alcohol?: 50 Do you use any illicit or recreational drugs?: Yes Which illicit or recreational drugs have you used?: Edibles Have you used IV drugs?: No What is your level of caffeine consumption?: Moderate Education and Occupation What is the highest grade or level of school you have completed or the highest degree you have received?: Some college, no degree Are you currently employed?: Yes Who is your employer?: [employer] Marriage and Sexuality What is your relationship status?: Are you sexually active?: No Do you use protection during sex?: No How many children do you have?: 2 Home and Environment Are there any guns present in your home?: Yes Advance Directive Do you have an advance directive?: No Do you have a medical power of finance attorney?: No Gender Identity and LGBTQ Identity Gender identity: Identifies as Female Assigned sex at : Female Sexual orientation: Straight or heterosexual Social History Substance Use Do you or have you ever smoked tobacco?: Former smoker How much tobacco do you smoke?: None When did you quit smoking?: 11-15 years since last cigarette Do you or have you ever used any other forms of tobacco or nicotine?: No Do you or have you ever used e-cigarettes or vape?: Current user of electronic cigarettes What was the date of your most recent tobacco screening?: 06/09/2023 Has tobacco cessation counseling been provided?: No What is your level of alcohol consumption?: None How many years have you consumed alcohol?: 50 Do you use any illicit or recreational drugs?: Yes Which illicit or recreational drugs have you used?: Edibles Have you used IV drugs?: No What is your level of caffeine consumption?: Moderate Education and Occupation What is the highest grade or level of school you have completed or the highest degree you have received?: Some college, no degree Are you currently employed?: Yes Who is your employer?: [employer] Marriage and Sexuality What is your relationship status?: Are you sexually active?: No Do you use protection during sex?: No How many children do you have?: 2 Home and Environment Are there any guns present in your home?: Yes Advance Directive Do you have an advance directive?: No Do you have a medical power of finance attorney?: No Public Health and Travel Have you been to an area known to be high risk for COVID-19?: No Gender Identity and LGBTQ Identity Gender identity: Identifies as Female Assigned sex at : Female Sexual orientation: Straight or heterosexual Social History Substance Use Do you or have you ever smoked tobacco?: Former smoker How much tobacco do you smoke?: None When did you quit smoking?: 11-15 years since last cigarette Do you or have you ever used any other forms of tobacco or nicotine?: No Do you or have you ever used e-cigarettes or vape?: Current user of electronic cigarettes What was the date of your most recent tobacco screening?: 06/09/2023 Has tobacco cessation counseling been provided?: No What is your level of alcohol consumption?: None How many years have you consumed alcohol?: 50 Do you use any illicit or recreational drugs?: Yes Which illicit or recreational drugs have you used?: Edibles Have you used IV drugs?: No What is your level of caffeine consumption?: Moderate Education and Occupation What is the highest grade or level of school you have completed or the highest degree you have received?: Some college, no degree Are you currently employed?: Yes Who is your employer?: [employer] Marriage and Sexuality What is your relationship status?: Are you sexually active?: No Do you use protection during sex?: No How many children do you have?: 2 Home and Environment Are there any guns present in your home?: Yes Advance Directive Do you have an advance directive?: No Do you have a medical power of finance attorney?: No Gender Identity and LGBTQ Identity Gender identity: Identifies as Female Assigned sex at : Female Sexual orientation: Straight or heterosexual Problems Problem Type SNOMED Code ICD Code Onset Dates Problem Status W/U Status Risk Notes Problem Mild recurrent major depression (53198339) Major depressive disorder, recurrent, mild (F33.0) 06/09/19 Active confirmed Problem Moderate recurrent major depression (99260946) Major depressive disorder, recurrent, moderate (F33.1) Active confirmed Problem Generalized anxiety disorder (99339226) Generalized anxiety disorder (F41.1) 06/09/19 Active confirmed Problem Posttraumatic stress disorder (30462713) Post-traumatic stress disorder, chronic (F43.12) 06/09/19 Active confirmed Problem Middle insomnia (86174417) 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) Active confirmed Problem Memory impairment (448641095) Memory impairment (R41.3) Active confirmed Problem Adjustment disorder with depressed mood (47660810) Grief reaction (F43.21) Active confirmed Problem Osteoarthritis of knee (974130247) Primary osteoarthritis of right knee (M17.11) 12/14/19 Active confirmed Vital Signs Heart Rate 84 /min 09/21/2024 Height-cm 152.40 cm 09/21/2024 Blood pressure diastolic 79 mm Hg 09/21/2024 Weight-kg 85.73 kg 09/21/2024 Height 60.00 in 09/21/2024 Blood pressure systolic 130 mm Hg 09/21/2024 Weight 189 lbs 09/21/2024 BMI 36.91 kg/m2 09/21/2024 Encounters Encounter Location Date Provider Diagnosis [facility], [facility] [address] [place] [id number] 03/09/2024 [place] Ni Major depressive disorder, recurrent, mild F33.0 ; Grief reaction F43.21 ; Generalized anxiety disorder F41.1 ; Post-traumatic stress disorder, chronic F43.12 and Middle insomnia G47.00 [facility] [email or web address] [facility] [address] [facility] [address] [place] [address] 06/26/2024 Dom Baker Primary osteoarthrit is of right knee M17.11 ; Major depressive disorder, recurrent, mild F33.0 ; Generalized anxiety disorder F41.1 ; Post-traumatic stress disorder, chronic F43.12 ; Encounter for screening for depression Z13.31 ; Encounter for screening for cardiovascular disorders Z13.6 and Memory impairment R41.3 [facility] [email or web address] [place] [address] [facility] [address] [place] [address] 08/31/2024 Dom Baker Memory impairment R41.3 [facility] [email or web address] [place] [address] [place] [address] 09/21/2024 Dom Baker Primary osteoarthrit is of right knee M17.11 ; Generalized anxiety disorder F41.1 ; Major depressive disorder, recurrent, mild F33.0 ; Post-traumatic stress disorder, chronic F43.12 ; Negative depression screening Z13.31 ; Encounter for screening for cardiovascular disorders Z13.6 ; Grief reaction F43.21 and Memory impairment R41.3 Assessments Encounter Date Diagnosis (ICD Code) Assessment Notes Treatment Notes Treatment Clinical Notes Section Notes 08/31/2024 Memory impairment (ICD-10 - R41.3) Interpretation of Cognitive Assessment Results Subject: Female, Age 69 Assessment Date: August 31, 2024 Assessment Tool: Creyos Cognitive Battery SLUMS Score: 29 (within normal limits for high-functioning cognition) Comparative Group: Females aged 65 to 74 1. SLUMS Cognitive Screening Interpretation SLUMS Total Score: 29 Interpretation: This is in the normal cognitive range, indicating no signs of dementia or mild cognitive impairment. It reflects preserved global cognitive functioning in orientation, memory, and executive domains. 2. Cognitive Task Results Summary A. Attention (Feature Match) Score: 94 Interpretation: Slightly above average. Indicates effective visual attention and processing speed. The individual can detect changes and maintain focus across stimuli with consistency. B. Episodic Memory (Paired Associates) Score: 100 Interpretation: Solid average performance. Suggests strong memory for meaningful associations, such as names, faces, or contextual cues. C. Response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
--- OUTSIDE RECORDS SUMMARY | 2025-01-16 08:11 | XMS_ITS | Encounter Summary ---
Author Organization [facility] [employer] Address 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
--- OUTSIDE RECORDS SUMMARY | 2025-01-16 08:11 | XMS_ITS | Encounter Summary ---
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 Historical Provider Final Res ult documented in this encounter Visit Diagnoses Not on filedocumented in this encounter Care Teams Teaching Music Lessons Relationship Specialty Start Date End Date Angel Lerner MD [address] [place] [address] PCP - General 12/31/18 documented as of this encounter
--- OUTSIDE RECORDS SUMMARY | 2025-01-16 08:11 | XMS_ITS | Clinical Summary ---
Author Organization [facility] [employer] Address [address] [place] [address] Care Team Providers Care Education Coordinator Name Role Phone Unavailable Primary Care Provider Unavailabl e Source Comments [facility] [employer],non-owned Affiliates and Associated Physician Practices is amultiple site organization consisting of ambulatory clinics and hospital sitesin [place], [place], [place] and [place]. This disclosure is being madepursuant to the Care Everywhere program and may not contain all information available regarding this patient. Last updated 17.[facility] [employer] Allergies Active Allergy Reactions Criticality Noted Date Comments Codeine 06/18/2009 Morphine 06/18/2009 Medications * Be aware that medications may not be up to date on this document. Alwaysverify current medications with the patient. ZOLOFT PO Take by mouth. As directed Active LORAZEPAM PO Take by mouth. As directed Active MECLIZINE HCL PO Take by mouth. Active Active Problems Problem Noted Date Diagnosed Date Nausea 06/18/2009 Dizziness 06/18/2009 Family History Medical History Relation Name Comments Migraine Brother 2 Arthritis - Osteo Brother 3 Seizures Brother 4 Arthritis - Osteo Father Cancer Father Heart Failure Father Cancer Maternal Grandmother Cancer Mother Migraine Mother Cancer Other Daughter Cancer Sister 4 Relation Name Status Comments Brother 1 Alive Brother 2 Brother 3 Brother 4 Father Maternal Grandmother Mother Other Sister 1 Alive Sister 2 Alive Sister 3 Alive Sister 4 Social History Tobacco Use Types Packs/Day Years Used Date Smoking Tobacco: Every Day Comments:10-15 cigarettes pe r day for 35 years Alcohol Use Standard Drinks/Week Comments No 0 (1 standard drink = 0.6 oz pur e alcohol) Comments Unknown Sex and Gender Information Value Date Recorded Sex Assigned at Not on file 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 Gender Identity Not on file Sexual Orientation Not on file 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 Not on file Not on file Not on file Plan of Treatment Health Maintenance Due Date Last Done Comments BONE DENSITY TESTING 1955 COLOGUARD (AGES 45-75) - COL ON CA SCREENING 1957 COLON MONITORING 1957 COLONOSCOPY - COLON CA SCREENING 1957 CT COLONOGRAPHY - COLON CA SCREENING 1957 Colorectal Cancer Screening 1957 FIT - COLON CA SCREENING 1957 FLEX SIG - COLON CA SCREENING 1957 LIPID TESTING 1957 MAMMOGRAM 1957 HEPATITIS C SCREENING 03/30/1975 DTAP/TDAP/TD VACCINES (1 - Tdap) 1976 PNEUMOCOCCAL VACCINE 50+ (1 of 2 - PCV) 1976 ZOSTER VACCINE (1 of 2) 2007 DEPRESSION SCREENING 03/29/2024 COVID-19 VACCINE (1 - 2023-2 5 season) 2024 INFLUENZA VACCINE (#1) 2024 Respiratory Syncytial Virus (RSV) Vaccine Pt: or over 60 yrs (1 - 1-dose 75+ series) 2032 HEPATITIS B VACCINE Aged Out No longe r eligible based on patient's age to complete this topic HIB VACCINE Aged Out No longer eligi ble based on patient's age to complete this topic HPV VACCINE Aged Out No longer eligi ble based on patient's age to complete this topic MENINGOCOCCAL (Group B) VACC INE SHARED DECISION-MAKING Aged Out No longer eligibl e based on patient's age to complete this topic MENINGOCOCCAL GROUPS A/C/Y/W VACCINE Aged Out No longer eligible b ased on patient's age to complete this topic
--- OUTSIDE RECORDS SUMMARY | 2025-01-16 08:11 | XMS_ITS | Encounter Summary ---
Author Organization [facility] Address 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
--- OUTSIDE RECORDS SUMMARY | 2025-01-16 08:11 | XMS_ITS | Encounter Summary ---
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 Historical Provider Final Res ult documented in this encounter Visit Diagnoses Not on filedocumented in this encounter Care Teams Visitor Services Specialist Relationship Specialty Start Date End Date Angel Lerner MD [address] [place], [place] [id number] PCP - General 12/31/18 documented as of this encounter
--- OUTSIDE RECORDS SUMMARY | 2025-01-16 08:11 | XMS_ITS ---
Author Name WHITNEY GARCIA M.D. Address [address] [place] [address] Phone [phone] Organization [facility] ([facility]) Care Team Providers Care Sales Trader Name Role Phone WHITNEY GARCIA Unavailable [phone] Angel Lerner Unavailable [phone] Reason for Referral Not Available Allergies, adverse reactions, alerts No known allergies Problem List No known problems Social History Sex Female Functional Status No Information Mental Status No Information Assessments Not Available Plan of Care Not Available
== END 2025-01-16 08:02 | disposition home or self-care (01) ==
PROVIDERS: PCP Family Medicine; Visit Provider Otolaryngology
DX: R42 Dizziness and giddiness (principal); Z12.2 Encounter for screening for malignant neoplasm of respiratory organs; Z87.891 Personal history of nicotine dependence
CPT/HCPCS: 70480; 71271